=== PATIENT | female | born 1985 | race Caucasian/White ===

== ENCOUNTER 2023-02-08 11:53 | Emergency (ER) | payer BC, MEDICAID ==
[~2023-02-08] VITALS: Ht 165.1 cm; Wt 59.0 kg
[2023-02-08] MEDS ORDERED: SODIUM CHLORIDE 0.9% 1,000 ML IV ONE ×3 (12:45→16:45)
[2023-02-08] MEDS ORDERED: PROCHLORPERAZINE EDISYLATE 5 MG/ML 2ML VIAL IM ONE (13:30)
[2023-02-08 13:34] LABS: Basophils # (auto) 0.1 10 ^3/uL (0-0.2); Basophils % (auto) 0.6 % (0.0-2.0); Eosinophils # (auto) 0 10 ^3/uL (0-0.8); Hematocrit 39.5 % (36.0-46.0); Hemoglobin 13.3 g/dL (12.2-16.2); Lymphocytes # (auto) 0.6 10 ^3/uL (0.4-5.4); Lymphocytes % (auto) 3.4 % (10.0-50.0); Mean Corpuscular Hemoglobin 30.1 pg (28.0-32.0); Mean Corpuscular Hgb Conc. 33.6 g/dL (32.0-36.0); Mean Corpuscular Volume 89.7 fL (80.0-100.0); Monocytes # (auto) 0.6 10 ^3/uL (0-1.3); Monocytes % (auto) 3.1 % (0.0-12.0); Neutrophils # (auto) 17.1 10 ^3/uL (1.6-8.6); Neutrophils % (auto) 92.9 % (37.0-80.0); Red Blood Cells 4.41 10^6/uL (4.0-5.20); Red Cell Distribution Width 13.7 % (11.8-14.3); White Blood Cell 18.5 10^3/uL (4.4-10.8)
[2023-02-08 13:48] LABS: Alanine Aminotransferase 22 U/L (7-40); Albumin 4.9 g/dL (3.2-4.8); Alkaline Phosphatase 39 U/L (46-116); Anion Gap 13 (5-15); Aspartate Aminotransferase 23 U/L (13-40); BUN/Creatinine Ratio 14.9 (10.0-20.0); Bilirubin, Total 2.2 mg/dL (0.2-1.0); Blood Urea Nitrogen 15 mg/dL (9-23); Calcium 9.6 mg/dL (8.7-10.4); Carbon Dioxide 16 mmol/L (20-30); Chloride 110 mmol/L (98-107); Glucose 144 mg/dL (74-106); INR 1.16 (0.9-1.15); Lipase 28 U/L (12-53); Partial Thromboplastin Time 23.5 SEC (24.5-34.5); Potassium 3.7 mmol/L (3.5-5.1); Prothrombin Time 12.1 sec (9.3-11.8); Sodium 139 mmol/L (136-145); Total Protein 7.2 g/dL (5.7-8.2)
[2023-02-08 13:59] VITALS: BP 105/70; PULSE 60; RESP 18; O2SAT 96
== END 2023-02-08 22:04 | disposition left against medical advice (07) ==
LOC: ER 11:53 → EDBD 11:53 → ER 22:02
DX: R10.9 Unspecified abdominal pain (principal); Z53.29 Procedure and treatment not carried out because of patient's decision for other reasons; R10.2 Pelvic and perineal pain
CPT/HCPCS: 36415; 76705; 80053; 83690; 84484; 84702; 85025; 85610; 85730; 96360; 96361; 96372; 99284; J0780; J7030